=== PATIENT | male | born 1960 | race Caucasian/White ===

== ENCOUNTER 2023-12-04 04:08 | Emergency (ER) | payer BC ==
[2023-12-04] MEDS: Sodium Chloride 0.9% 10 ML Syringe FLUSH PRN (04:34)
[2023-12-04] MEDS: Aspirin 81 MG Tab.Chew PO ONE (04:34)
[2023-12-04 04:35] LABS: BASOPHILS ABSOLUTE AUTO 0.06 K/uL (0.00-0.20); BASOPHILS PERCENT AUTO 0.7 % (0.0-1.0); EOSINOPHILS ABSOLUTE AUTO 0.29 K/uL (0.00-0.45); EOSINOPHILS PERCENT AUTO 3.6 % (0.0-6.0); HEMATOCRIT 46.5 % (42.0-52.0); HEMOGLOBIN 16.1 g/dL (14.0-18.0); IMMATURE GRAN ABSOLUTE AUTO 0.02 K/uL (0.00-0.05); IMMATURE GRAN PERCENT AUTO 0.2 % (0.0-0.4); LYMPHOCYTES ABSOLUTE AUTO 1.48 K/uL (1.00-4.80); LYMPHOCYTES PERCENT AUTO 18.3 % (24.0-44.0); MEAN CORPUSCULAR HEMOGLOBIN 30.2 pg (28.0-32.0); MEAN CORPUSCULAR HGB CONC 34.6 g/dL (32.0-36.0); MEAN CORPUSCULAR VOLUME 87.2 fL (83.0-99.0); MEAN PLATELET VOLUME 8.3 fL (9.4-12.4); MONOCYTES ABSOLUTE AUTO 0.76 K/uL (0.00-0.80); MONOCYTES PERCENT AUTO 9.4 % (0.0-8.0); NEUTROPHILS ABSOLUTE AUTO 5.46 K/uL (1.80-7.70); NEUTROPHILS PERCENT AUTO 67.8 % (41.0-71.0); PLATELET COUNT,PLT 241 K/uL (150-400); RED BLOOD CELL COUNT 5.33 M/uL (4.52-5.90); WHITE BLOOD CELL COUNT,WBC 8.07 K/uL (3.9-11.3)
[2023-12-04] MEDS: Sodium Chloride 0.9% 2.5 ML Syringe FLUSH PRN (04:35)
[2023-12-04] MEDS: Tenecteplase 50 MG Kit IV ONE (04:45)
[2023-12-04] MEDS: Heparin Sodium/0.45% NaCl 500 ML IV SCH (04:50)
[2023-12-04 05:00] LABS: A/G RATIO 1.6 (0.9-1.6); ALBUMIN 4.7 g/dL (3.4-5.0); BILIRUBIN TOTAL 0.8 mg/dL (0.2-1.0); CALCIUM 10.6 mg/dL (8.5-10.1); CREATININE 0.9 mg/dL (0.8-1.3); EST CRCL DRUG DOSING (CG) 79.56 mL/min; POTASSIUM,K 3.9 mmol/L (3.5-5.1); PROTEIN TOTAL,TP 7.7 g/dL (6.4-8.2)
== END 2023-12-04 09:00 ==
LOC: MW.ED 04:08
DX: I21.3 ST elevation (STEMI) myocardial infarction of unspecified site (principal); Z75.8 Other problems related to medical facilities and other health care
CPT/HCPCS: 36415; 71045; 80053; 84484; 85025; 85730; 93005; 96365; 96366; 96375; 99285; A9270; J1644; J3101; J3490